=== PATIENT | female | born 1990 | race Two or more races ===

== ENCOUNTER 2022-09-10 04:04 | Emergency (ER) | payer BC ==
[~2022-09-10] VITALS: Ht 170.2 cm; Wt 59.0 kg
[2022-09-10] MEDS ORDERED: CEPHALEXIN500 MG PO (06:08)
== END 2022-09-10 06:14 ==
LOC: ER 04:04
DX: S01.82XA Laceration with foreign body of other part of head, initial encounter (principal); Y04.0XXA Assault by unarmed brawl or fight, initial encounter; Y93.89 Activity, other specified; Y92.89 Other specified places as the place of occurrence of the external cause